=== PATIENT | female | born 1950 | race Caucasian/White ===

== ENCOUNTER 2016-12-19 14:47 | Emergency (ER) | payer MEDICARE, BC ==
[2016-12-19 15:00] VITALS: BP 140/51
--- NOTE | 2016-12-19 15:45 | EDM.PDOC ---
ED HPI GENERAL MEDICAL PROBLEM - General Chief Complaint: Back Pain or Injury Stated Complaint: BACK PAIN Time Seen by Provider: 12/19/16 15:19 Source of Information: Reports: Patient History Limitations: Reports: No Limitations - History of Present Illness INITIAL COMMENTS - FREE TEXT/NARRATIVE: 58-year-old female presents for evaluation and treatment of low back pain. Patient reports that she was moving furniture and painting today. She states that she was pulling on a piece of furniture when she felt pain in her low back. She states that it is painful to straighten her low back. States she feels most comfortable walking with hunched over. She denies any numbness or tingling into the legs. No saddle anesthesia. No urinary or stool incontinence. She states that she tried some Aleve and heating pad prior to arrival the pain. She did not hear any sounds popping or snapping when she developed the pain. No surgeries or past injury to the low back. Patient has a history of RA. Patient also complains of headaches. Reports she has had a headache since July. She said that she believes this is from a sinus infection. She reports associated tooth pain, pain behind her eyes and into her ureters. Since she was placed on a Z-Julio in September. Did not have any relief with the Z-Julio. 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 12/19/16 [History] Amoxicillin/Potassium Clav [Augmentin 500-125 Tablet] 1 each PO BID #20 tablet 12/19/16 [Rx] Orphenadrine [Norflex] 100 mg PO BID PRN #20 tab.er 12/19/16 [Rx] Sertraline [Zoloft] 100 mg PO DAILY 12/19/16 [History] Zolpidem Tartrate [Ambien] 10 mg PO BEDTIME 12/19/16 [History] traMADol [Ultram] 50 mg PO Q6H PRN #20 tablet 12/19/16 [Rx] Past Medical History Musculoskeletal History: Reports: RA Oncologic (Cancer) History: Reports: Breast Social & Family History - Tobacco Use Smoking Status *Q: Former Smoker Used Tobacco, but Quit: No ED ROS GENERAL - Review of Systems Review Of Systems: See Below Constitutional: Denies: Fever, Chills HEENT: Reports: Dental Pain, Ear Pain, Sinus Problem GI/Abdominal: Denies: Nausea, Vomiting Musculoskeletal: Reports: Back Pain Skin: Denies: Rash Neurological: Reports: Headache, Difficulty Walking. Denies: Numbness, Tingling ED EXAM,LOWER BACK PAIN/INJURY - Physical Exam Exam: See Below Exam Limited By: No Limitations General Appearance: Alert, WD/WN, No Apparent Distress Ears: Normal External Exam, Normal Canal, Hearing Grossly Normal Nose: Normal Inspection Throat/Mouth: Normal Inspection, Normal Lips, Normal Voice, No Airway Compromise Head: Sinus Tenderness Neck: Normal Inspection, Non-Tender, Full Range of Motion Respiratory/Chest: No Respiratory Distress, Lungs Clear, Normal Breath Sounds Cardiovascular: Normal Peripheral Pulses, Regular Rate, Rhythm, No Murmur Back Exam: Normal Inspection. No: CVA Tenderness (R), Decreased Range of Motion , Vertebral Tenderness Extremities: Normal Inspection Neurological: Alert, Normal Mood/Affect, Normal Dorsiflexion, Normal Plantar Flexion, Straight Leg Raise (L), Straight Leg Raise (R), Difficulty Walking ( walking hunched over), Other (no pain with adduction, abduction of the hips; minor pain with flexion ofthe hips). No: Saddle Anesthesia Psychiatric: Normal Affect, Normal Mood Skin Exam: Warm, Dry, Normal Color, Erythema (right lower back reportly from heating pad applied to the back prior to arrival; no rashes appreciated ) Course - Vital Signs Last Recorded V/S: Last Vital Signs Temp 36.7 C 12/19/16 14:57 Pulse 52 L 12/19/16 14:57 Resp 18 12/19/16 14:57 BP 140/51 L 12/19/16 14:57 Pulse Ox 98 12/19/16 14:57 - Re-Assessments/Exams Free Text/Narrative Re-Assessment/Exam: 12/19/16 15:40 Discussed imaging with the patient. I do not feel an x-ray will provide much additional information at this time. Will prescribe her some medication to help with the pain and discomfort. I am concerned she may have herniated a disc. It is also possible that she is just experiencing muscle strain and spasm. I will have her follow up with her primary care provider. We did discuss that she may require an MRI in the future to further evaluate if this does not improve. Patient agrees with this treatment plan. Will discharge home at this time. Departure - Departure Time of Disposition: 15:45 Disposition: Home, Self-Care 01 Condition: fair Clinical Impression: Back pain - Discharge Information Prescriptions: Amoxicillin/Potassium Clav [Augmentin 500-125 Tablet] 1 each PO BID #20 tablet Orphenadrine [Norflex] 100 mg PO BID PRN #20 tab.er PRN Reason: Muscle Spasm traMADol [Ultram] 50 mg PO Q6H PRN #20 tablet PRN Reason: Pain Instructions: Back Pain, Adult Referrals: Selvin Hwang MD [Primary Care Provider] - Forms: ED Department Discharge Additional Instructions: Take the Augmentin one tablet twice a day for 10 days. This is for the sinus infection. Take this with food. Recommend yogurt or probiotic as this medication can be hard on the stomach. Continue with [id number] Aleve twice a day. may take the Norflex one tab twice a day. This is for muscle relaxation. Do not drive or operate machinery until he noticed medication as norflex can make you drowsy. Tramadol one tab every 4-6 hours for pain not relieved by Aleve. Do not drive or operate machinery within 12 hours of taking tramadol. follow up with your primary care provider in 7-10 days for a recheck. You may require additional testing if your symptoms have not improved. Continue with ice or moist heat to the low back for additional pain relief. you may also try topical product for hot or BenGay. Please return to the ER should your symptoms change or worsen.
== END 2016-12-19 15:55 | disposition home or self-care (01) ==
LOC: MERGE 14:47 → JD.ED 14:47
DX: M54.5 Low back pain (principal); M06.9 Rheumatoid arthritis, unspecified; Z79.899 Other long term (current) drug therapy; Z87.891 Personal history of nicotine dependence
CPT/HCPCS: 99283

== ENCOUNTER 2020-12-09 09:07 | Inpatient (IN) | payer MEDICARE, BC ==
[~2020-12-09 09:07] MED LIST: Lactated Ringers 1,000 ML IV SCH; Lidocaine 1% 4 ML ONE; Lidocaine 1%/Sod Bicarbonate in NS 8.4% 1 ML Syringe IDERM PRN; Midazolam 1 MG/ML 2 ML SDV ONE; Propofol 200 MG/20 ML SDV ONE; Sodium Chloride 0.9% 10 ML Syringe FLUSH PRN; fentaNYL 100 MCG/2 ML SDV ONE
--- NOTE | 2020-12-09 09:19 | PCM.PREANE ---
Preanesthetic Assessment - Procedure Proposed Procedure: right breast mastectomy with sentinal node biopsy - Anesthesia/Transfusion/Family Hx Anesthesia History: Prior Anesthesia Without Reaction Family History of Anesthesia Reaction: No Transfusion History: No Prior Transfusion(s) - Review of Systems General: No Symptoms Pulmonary: No Symptoms Cardiovascular: No Symptoms Gastrointestinal: No Symptoms Neurological: No Symptoms Other: Reports: Depression - Physical Assessment NPO Status Date: 12/08/20 NPO Status Time: 19:00 Vital Signs: 98.0 18 95% 70 111/68 Height: 5 ft 6 in Weight: 60.1 kg ASA Class: 2 Mental Status: Alert & Oriented x3 Airway Class: Mallampati = 1 Dentition: Reports: Normal Dentition Thyro-Mental Finger Breadths: 3 Mouth Opening Finger Breadths: 3 ROM/Head Extension: Full Lungs: Clear to Auscultation, Normal Respiratory Effort Cardiovascular: Regular Rate, Regular Rhythm - Allergies Allergies/Adverse Reactions: Allergies Allergy/AdvReac Type Severity Reaction Status Date / Time No Known Allergies Allergy Verified 12/08/20 10:45 - Blood Blood Available: No - Acknowledgements Anesthesia Type Planned: General Anesthesia Pt an Appropriate Candidate for the Planned Anesthesia: Yes Alternatives and Risks of Anesthesia Discussed w Pt/Guardian: Yes Pt/Guardian Understands and Agrees with Anesthesia Plan: Yes PreAnesthesia Questionnaire HEENT History: Reports: Cataract Cardiovascular History: Reports: Angina, High Cholesterol, Other (See Below) Other Cardiovascular History: coronary artery spasm, heart cath Respiratory History: Reports: None Gastrointestinal History: Reports: Colon Polyp, Diverticulosis Genitourinary History: Reports: UTI, Recurrent SANITARY LANDFILL SUPERVISOR History: Reports: None Musculoskeletal History: Reports: RA, Other (See Below) Other Musculoskeletal History: polyarthralgia, left shoulder impingement Neurological History: Reports: Headaches, Chronic (gone) Psychiatric History: Reports: Depression Endocrine/Metabolic History: Reports: None Hematologic History: Reports: None Immunologic History: Reports: None Oncologic (Cancer) History: Reports: Breast Dermatologic History: Reports: None - Infectious Disease History Infectious Disease History: Reports: None - Past Surgical History Head Surgeries/Procedures: Reports: None HEENT Surgical History: Reports: Cataract Surgery, Oral Surgery Cardiovascular Surgical History: Reports: None Respiratory Surgical History: Reports: None GI Surgical History: Reports: Colonoscopy Female Surgical History: Reports: None Male Surgical History: Reports: None, Other (See Below) (lumpectomy 2002) Endocrine Surgical History: Reports: None Neurological Surgical History: Reports: None Musculoskeletal Surgical History: Reports: None Oncologic Surgical History: Reports: None Dermatological Surgical History: Reports: None - SUBSTANCE USE Tobacco Use Status *Q: Former Tobacco User (quit 1981) Tobacco Use Within Last Twelve Months: No Second Hand Smoke Exposure: No Days Per Week of Alcohol Use: 0 Recreational Drug Use History: No - HOME MEDS Home Medications: Home Meds Aspirin 81 mg PO DAILY 12/08/20 [History] Calcium Carb/Vitamin D3/Vit K1 [Calcium + D Soft Chewable Tab] 1 tab PO DAILY 12/08/20 [History] Cholecalciferol (Vitamin D3) [Vitamin D3] 1,000 unit PO DAILY 12/08/20 [History] Citalopram Hydrobromide [Celexa] 20 mg PO DAILY 12/08/20 [History] Denosumab [Prolia] 60 mg SQ ASDIRECTED 12/08/20 [History] Isosorbide Mononitrate [Imdur] 30 mg PO BID 12/08/20 [History] Naproxen Sodium [Aleve] 220 mg PO BID 12/08/20 [History] Nitroglycerin [Nitrostat] 0.4 mg SL ASDIRECTED PRN 12/08/20 [History] Ranolazine [Ranexa] 500 mg PO BID 12/08/20 [History] Ubidecarenone [Coq-10] 100 mg PO DAILY 12/08/20 [History] Zolpidem Tartrate [Ambien Cr] 6.25 mg PO BEDTIME PRN 12/08/20 [History] amLODIPine [Norvasc] 5 mg PO DAILY 12/08/20 [History] atorvaSTATin Calcium [Lipitor] 20 mg PO BEDTIME 12/08/20 [History] - CURRENT (IN HOUSE) MEDS Current Meds: Current Medications Lactated Ringer's (Ringers, Lactated) 1,000 mls @ 125 mls/hr IV ASDIRECTED CHIKI Stop: 12/09/20 23:00 Lidocaine/Sodium Bicarbonate (Lidocaine 1%/Sod Bicarbonate In Ns 8.4% 1 Ml Syringe) 0.25 ml IDERM ONETIME PRN PRN Reason: Prior to IV Start Stop: 12/09/20 18:00 Sodium Chloride (Sodium Chloride 0.9% 10 Ml Syringe) 10 ml FLUSH ASDIRECTED PRN PRN Reason: Keep Vein Open Stop: 12/09/20 18:00 Discontinued Medications Fentanyl (Fentanyl 100 Mcg/2 Ml Sdv) Confirm Administered Dose 100 mcg .ROUTE .STK-MED ONE Stop: 12/09/20 08:38 Lidocaine HCl (Xylocaine-Mpf 1%) Confirm Administered Dose 4 mls @ as directed .ROUTE .STK-MED ONE Stop: 12/09/20 08:38 Midazolam HCl (Midazolam 1 Mg/Ml 2 Ml Sdv) Confirm Administered Dose 2 mg .ROUTE .STK-MED ONE Stop: 12/09/20 08:37 Propofol (Propofol 200 Mg/20 Ml Sdv) Confirm Administered Dose 200 mg .ROUTE .STK-MED ONE Stop: 12/09/20 08:38 Propofol (Propofol 200 Mg/20 Ml Sdv) Confirm Administered Dose 200 mg .ROUTE .STK-MED ONE Stop: 12/09/20 08:38
[2020-12-09] MEDS ORDERED: ceFAZolin 1 GM Vial ONE (09:26)
[2020-12-09] MEDS ORDERED: Lidocaine 1% with EPINEPHrine 1:100,000 10 ML MDV ONE (09:39)
[2020-12-09] MEDS ORDERED: Bupivacaine 0.5%/EPINEPHrine 1:200,000 50 ML MDV ONE (09:40)
[2020-12-09] MEDS ORDERED: Methylene Blue 50 MG/10 ML Ampule ONE (09:41)
[2020-12-09] MEDS ORDERED: Dextrose 5% in Water 100 ML ONE (09:44)
[2020-12-09] MEDS ORDERED: fentaNYL 100 MCG/2 ML SDV ONE (10:08)
[2020-12-09] MEDS ORDERED: Lactated Ringers 1,000 ML ONE ×2 (11:11→13:19)
[2020-12-09] MEDS ORDERED: Midazolam 1 MG/ML 2 ML SDV ONE (11:34)
[2020-12-09] MEDS ORDERED: ePHEDrine 50 MG/ML SDV ONE ×2 (12:51→12:52)
[2020-12-09] MEDS ORDERED: Ondansetron 4 MG/2 ML SDV ONE (13:02)
[2020-12-09] MEDS ORDERED: Dexamethasone 4 MG/ML 5 ML MDV ONE (13:02)
--- NOTE | 2020-12-09 13:12 | NM ---
Lena lymph node injection 1.02 mCi of technetium 99m filtered sulfur colloid was injected by ordering physician in surgery. No filming was obtained.
--- NOTE | 2020-12-09 13:43 | PCM.OPNOTE ---
- General Post-Op/Procedure Note Date of Surgery/Procedure: 12/09/20 Operative Procedure(s): right mastectomy with sentinel lymph node biopsy Findings: Poor uptake of radiotracer and Methylene blue dye into the lymphatics Pre Op Diagnosis: right breast cancer Post-Op Diagnosis: same Anesthesia Technique: General LMA, Local Primary Surgeon: Nicole Lowry Anesthesia Provider: Shanita Lawrence Pathology: 1. Right breast- short stitch superior and long stitch lateral margins 2. Left Axillary tissue 3. Left Axillary node 4. Left axillary skin 5. Medial margin skin Fluid Replacement, Intraop: 2,000 EBL in mLs: 50 Surgical Drain/Tube Type: Amauri Drain Drain/Tube Comments:: to bulb suction Complications: none apparent Condition: Good
--- NOTE | 2020-12-09 13:47 | PCM.PRNOTE ---
- Free Text/Narrative Note: Operative Report Date of surgery: December 09, 2020 Preoperative diagnosis: Right breast cancer Postoperative diagnosis:same Procedure: right mastectomy with sentinel lymph node biopsy Surgeon: Dr. Nicole Lowry Garbage Collection Supervisor: n/a Anesthesia: General LMA with local Dielectric Tester: Shanita Lawrence CRNA and Filipe Prater CRNA Estimated blood loss: 50 mL IV fluids: 2000 mL Urine output: 0 mL Drains and lines: 10F amauri drain in right chest mastectomy cavity Findings: Poor uptake of radiotracer and Methylene blue dye into the lymphatics Pathology: 1. Right breast- short stitch superior and long stitch lateral margins 2. Left Axillary tissue 3. Left Axillary node 4. Left axillary skin 5. Medial margin skin Indication for the procedure: The patient is a 70-year-old lady who presented with findings of a second breast cancer after a remote history of right breast cancer that was treated with a lumpectomy and radiation. She had previously undergone mammogram a. She was consented for a mastectomy after discussion of risks of possible bleeding, infection, hematoma, seroma, and wound comp lications. We also discussed a sentinel lymph node biopsy. We discussed risks of possible upper extremity edema. Her written consent was obtained. Description of the procedure: The patient was brought to the operating room and placed in the supine position on the operating table. The right breast had been marked in the preoperative area. She had successful induction of general anesthesia, and an LMA was placed without difficulty. Antibiotics were given according to SQIP guidelines, Ancef 2g IV. A surgical timeout was performed. The lymphoscintigraphy injection was then made in 4 quadrants around the areolar complex, total of 1 mL. The patient was prepped and draped in standard surgical fashion. Methylene blue was then injected in 4 quadrants around the areolar complex, a total of 4 mL was used. The breast was the massaged for 5 minutes to facilitate uptake of the dye and lymphoscintigraphy tracer. An incision was marked in an elliptical fashion a round the nipple-areolar complex. Once this was drawn on the skin with a sterile skin marker, an incision was made with a #10 blade scalpel, then extended through the remainder of the dermis using the Bovie device, maintaining hemostasis as we progressed. The skin flaps were then raised superiorly, medially, inferiorly and laterally, taking care to maintain adequate vascular supply. The dissection taken down to the chest wall in the superior, medial and inferior positions. The breast tissue was then dissected off the chest wall to the investing fascia of the pectoralis major muscle. The breast was carefully taken off the axilla. The specimen was then oriented with a short suture placed superiorly and a long suture placed laterally. The Gamma counter was used to evaluate the tail of the breast as there was axillary tissue attached. We had persistent counts up to the 30's, but as the areolar tissue was dissected free from the breast specimen, no significant counts were identified, indicating very poor uptake of the lymphoscintigraphy tracer. In addition, there was no methylene blue noted in the lymphatic system. The axillary tissue was then passed off for pathology. The Gamma counter was used to evaluate the axill a, and there was no significant uptake seen. There was a prominent lymph node noted superficially in the surgical field, and this was removed for testing. The operative field was then inspected for adequacy of hemostasis. Small points of bleeding were easily controlled with Bovie. The wound was irrigated using sterile water. The skin was then evaluated for closure. Two additional ellipses of skin were removed on the superior lateral and inferior lateral portions of the wound. An additional medial margin of skin was removed for better cosmesis. A 10F Amauri drain was then inserted into the mastectomy cavity and brought out through the lateral chest skin and secured to the skin externally using a 2-0 nylon suture. It was then connected to bulb suction. The skin was closed in two layers. The deep dermis was approximated using interrupted deep dermal sutures of 3-0 Vicryl in a Y-shaped incision and the skin closed with running subcuticular suture of 4-0 Monocryl. Dermabond surgical glue was applied to the top layer of skin. Gauze is placed around the drain as a drain dressing, and additional gauze and a surgical bra was placed. The patient tolerated the procedures well. Sponge, needle and instrument counts were all correct at the end of the procedure. The patient was then brought back to the PACU at the end of the procedure, extubated, awake and in good condition. No immediate complications were noted. Nicole Lowry MD General surgery
--- NOTE | 2020-12-09 13:52 | PCM.POSTAN ---
POST ANESTHESIA ASSESSMENT - MENTAL STATUS Mental Status: Alert, Oriented - VITAL SIGNS Vital Signs: Last Vital Signs Temp 36.3 C 12/09/20 13:41 Pulse 70 12/09/20 09:05 Resp 15 12/09/20 13:41 BP 115/59 L 12/09/20 13:41 Pulse Ox 95 12/09/20 13:41 - RESPIRATORY Respiratory Status: Respiratory Rate WNL, Airway Patent, O2 Saturation Stable, Supplemental Oxygen - CARDIOVASCULAR CV Status: Pulse Rate WNL, Blood Pressure Stable - GASTROINTESTINAL GI Status: No Symptoms - PAIN Pain Score: 0 - POST OP HYDRATION Hydration Status: Adequate & Stable
[2020-12-09] MEDS ORDERED: traMADol 50 MG Tab PO PRN (13:53)
[2020-12-09] MEDS ORDERED: Nitroglycerin 0.4 MG Tab.SL SL PRN (14:13)
[2020-12-09] MEDS ORDERED: Non-Formulary Medication 1 Each (Denosumab [Prolia] 60 MG/ML Syringe) SQ SCH (14:15)
[2020-12-09] MEDS ORDERED: Zolpidem 5 MG Tab PO PRN (15:16)
[2020-12-09] MEDS: Acetaminophen 325 MG Tab PO SCH ×2 (15:37→20:09)
[2020-12-09] MEDS: Docusate Sodium 100 MG Cap PO SCH (20:09)
[2020-12-09] MEDS: Isosorbide Mononitrate 30 MG Tab.ER PO SCH (20:10)
[2020-12-09] MEDS ORDERED: atorvaSTATin 20 MG Tab PO SCH (21:00)
[2020-12-10] MEDS: Acetaminophen 325 MG Tab PO SCH ×2 (03:04→09:52)
--- NOTE | 2020-12-10 07:34 | PCM.SURGPN ---
- General Info Date of Service: 12/10/20 POD#: 1 Post-Op Diagnosis: right breast cancer, s/p right mastectomy and sentinel lymph node biopsy Functional Status: Reports: Pain Controlled, Tolerating Diet - Patient Data Vitals - Most Recent: Last Vital Signs Temp 36.6 C 12/10/20 03:06 Pulse 58 L 12/10/20 03:06 Resp 18 12/10/20 03:06 BP 115/73 12/10/20 03:06 Pulse Ox 92 L 12/10/20 03:06 Weight - Most Recent: 61.462 kg I&O - Last 24 Hours: Intake & Output 12/09/20 12/10/20 12/10/20 22:59 06:59 14:59 Intake Total 100 250 Output Total 55 Balance 100 195 Lab Results Last 24 Hrs: Laboratory Results - last 24 hr 12/09/20 12/09/20 Range/Units 10:03 10:03 WBC 4.01 (3.98-10.04) K/mm3 RBC 3.60 L (3.98-5.22) M/mm3 Hgb 11.2 (11.2-15.7) gm/dl Hct 33.6 L (34.1-44.9) % MCV 93.3 (79.4-94.8) fl MCH 31.1 (25.6-32.2) pg MCHC 33.3 (32.2-35.5) g/dl RDW Std Deviation 41.9 (36.4-46.3) fL Plt Count 245 (182-369) K/mm3 MPV 9.3 L (9.4-12.3) fl Neut % (Auto) 58.2 (34.0-71.1) % Lymph % (Auto) 30.4 (19.3-51.7) % [place] % (Auto) 8.7 (4.7-12.5) % Eos % (Auto) 2.2 (0.7-5.8) Baso % (Auto) 0.5 (0.1-1.2) % Neut # (Auto) 2.33 (1.56-6.13) K/mm3 Lymph # (Auto) 1.22 (1.18-3.74) K/mm3 [place] # (Auto) 0.35 (0.24-0.36) K/mm3 Eos # (Auto) 0.09 (0.04-0.36) K/mm3 Baso # (Auto) 0.02 (0.01-0.08) K/mm3 Sodium 142 (136-145) mEq/L Potassium 4.0 (3.5-5.1) mEq/L Chloride 105 (98-107) mEq/L Carbon Dioxide 28 (21-32) mEq/L Anion Gap 13.0 (5-15) BUN 29 H (7-18) mg/dL Creatinine 0.9 (0.55-1.02) mg/dL Est Cr Clr Drug Dosing 52.89 mL/min Estimated GFR (MDRD) > 60 (>60) mL/min BUN/Creatinine Ratio 32.2 H (14-18) Glucose 88 (70-99) mg/dL Calcium 8.7 (8.5-10.1) mg/dL Med Orders - Current: Current Medications Acetaminophen (Acetaminophen 325 Mg Tab) 650 mg PO Q6H [facility] Last Admin: 12/10/20 03:04 Dose: 650 mg Documented by: Amlodipine Besylate (Amlodipine 5 Mg Tab) 5 mg PO DAILY [facility] Aspirin (Aspirin 81 Mg Tab.Chew) 81 mg PO DAILY [facility] Atorvastatin Calcium (Atorvastatin 20 Mg Tab) 20 mg PO BEDTIME [facility] Last Admin: 12/09/20 20:10 Dose: 20 mg Documented by: Calcium Carbonate (Calcium Carbonate/Vitamin D3 600 Mg-200 Units Tab) 1 tab PO DAILY [facility] Cholecalciferol (Cholecalciferol (Vitamin D3) 25 Mcg Tab) 25 mcg PO DAILY [facility] Citalopram Hydrobromide (Citalopram 20 Mg Tab) 20 mg PO DAILY [facility] Docusate Sodium (Docusate Sodium 100 Mg Cap) 100 mg PO BID [facility] Last Admin: 12/09/20 20:09 Dose: 100 mg Documented by: Isosorbide Mononitrate (Isosorbide Mononitrate 30 Mg Tab.Er) 30 mg PO BID [facility] Last Admin: 12/09/20 20:10 Dose: 30 mg Documented by: Nitroglycerin (Nitroglycerin 0.4 Mg Tab.Sl) 0.4 mg SL ASDIRECTED PRN PRN Reason: Chest Pain Ranolazine (Ranolazine 500 Mg Tab.Er) 500 mg PO BID [facility] Last Admin: 12/09/20 20:10 Dose: 500 mg Documented by: Tramadol HCl (Tramadol 50 Mg Tab) 50 mg PO Q4H PRN PRN Reason: Pain (moderate 4-6) Zolpidem Tartrate (Zolpidem 5 Mg Tab) 5 mg PO BEDTIME PRN PRN Reason: Insomnia Last Admin: 12/09/20 20:21 Dose: 5 mg Documented by: Discontinued Medications Bupivacaine HCl/Epinephrine Bitart (Bupivacaine 0.5%/Epinephrine 1:200,000 50 Ml Mdv) Confirm Administered Dose 50 ml .ROUTE .[facility] ONE Stop: 12/09/20 09:41 Last Admin: 12/09/20 11:16 Dose: 15 ml Documented by: Cefazolin Sodium (Cefazolin 1 Gm Vial) Confirm Administered Dose 2 gm .ROUTE .[facility] ONE Stop: 12/09/20 09:27 Dexamethasone (Dexamethasone 4 Mg/Ml 5 Ml Mdv) Confirm Administered Dose 20 mg .ROUTE .[facility] Stop: 12/09/20 13:03 Ephedrine Sulfate (Ephedrine 50 Mg/Ml Sdv) Confirm Administered Dose 50 mg .ROUTE .[facility] ONE Stop: 12/09/20 12:52 Ephedrine Sulfate (Ephedrine 50 Mg/Ml Sdv) Confirm Administered Dose 50 mg .ROUTE .[facility] ONE Stop: 12/09/20 12:53 Fentanyl (Fentanyl 100 Mcg/2 Ml Sdv) Confirm Administered Dose 100 mcg .ROUTE .[facility] ONE Stop: 12/09/20 08:38 Fentanyl (Fentanyl 100 Mcg/2 Ml Sdv) Confirm Administered Dose 100 mcg .ROUTE .[facility] ONE Stop: 12/09/20 10:09 Lactated Ringer's (Ringers, Lactated) 1,000 mls @ 125 mls/hr IV ASDIRECTED [facility] Stop: 12/09/20 23:00 Last Admin: 12/09/20 09:20 Dose: 125 mls/hr Documented by: Lidocaine HCl (Xylocaine-Mpf 1%) Confirm Administered Dose 4 mls @ as directed .ROUTE .[facility] ONE Stop: 12/09/20 08:38 Dextrose/Water (Dextrose 5% In Water) Confirm Administered Dose 100 mls @ as directed .ROUTE .[facility] ONE Stop: 12/09/20 09:45 Lactated Ringer's (Ringers, Lactated) Confirm Administered Dose 1,000 mls @ as directed .ROUTE .[facility] ONE Stop: 12/09/20 11:12 Lactated Ringer's (Ringers, Lactated) Confirm Administered Dose 1,000 mls @ as directed .ROUTE .[facility] ONE Stop: 12/09/20 13:20 Lidocaine/Epinephrine (Lidocaine 1% With Epinephrine 1:100,000 10 Ml Mdv) Confirm Administered Dose 50 ml .ROUTE .[facility] ONE Stop: 12/09/20 09:40 Last Admin: 12/09/20 11:16 Dose: 15 ml Documented by: Lidocaine/Sodium Bicarbonate (Lidocaine 1%/Sod Bicarbonate In Ns 8.4% 1 Ml Syringe) 0.25 ml IDERM ONETIME PRN PRN Reason: Prior to IV Start Stop: 12/09/20 18:00 Last Admin: 12/09/20 09:20 Dose: 0.25 ml Documented by: Methylene Blue (Methylene Blue 50 Mg/10 Ml Ampule) Confirm Administered Dose 50 mg .ROUTE .[facility] ONE Stop: 12/09/20 09:42 Last Admin: 12/09/20 11:06 Dose: 5 mg Documented by: Midazolam HCl (Midazolam 1 Mg/Ml 2 Ml Sdv) Confirm Administered Dose 2 mg .ROUTE .[facility] ONE Stop: 12/09/20 08:37 Midazolam HCl (Midazolam 1 Mg/Ml 2 Ml Sdv) Confirm Administered Dose 2 mg .ROUTE .[facility] ONE Stop: 12/09/20 11:35 Non-Formulary Medication (Denosumab [Prolia]) 60 mg SQ ASDIRECTED [facility] Non-Formulary Medication (Ubidecarenone) 100 mg PO DAILY [facility] Ondansetron HCl (Ondansetron 4 Mg/2 Ml Sdv) Confirm Administered Dose 4 mg .ROUTE .[facility] ONE Stop: 12/09/20 13:03 Propofol (Propofol 200 Mg/20 Ml Sdv) Confirm Administered Dose 200 mg .ROUTE .[facility] ONE Stop: 12/09/20 08:38 Propofol (Propofol 200 Mg/20 Ml Sdv) Confirm Administered Dose 200 mg .ROUTE .[facility] ONE Stop: 12/09/20 08:38 Sodium Chloride (Sodium Chloride 0.9% 10 Ml Syringe) 10 ml FLUSH ASDIRECTED PRN PRN Reason: Keep Vein Open Stop: 12/09/20 18:00 - Exam Wound/Incisions: Healing Well, Dressing Dry and Intact, Drainage (SS drainage in HIRAM bulb), Erythema (very mild) General: Alert, Oriented HEENT: Pupils Equal, EOMI Lungs: Normal Respiratory Effort Sepsis Event Note - Evaluation Sepsis Screening Result: No Definite Risk - Focused Exam Vital Signs: Vital Signs Temp Pulse Resp BP Pulse Ox 12/10/20 03:06 36.6 C 58 L 18 115/73 92 L 12/09/20 22:52 36.8 C 64 16 107/51 L 91 L 12/09/20 20:10 106/64 12/09/20 19:56 36.7 C 65 16 106/64 93 L - Problem List & Annotations (1) S/P right mastectomy SNOMED Code(s): 693730440, 573924025 Code(s): Z90.11 - ACQUIRED ABSENCE OF RIGHT BREAST AND NIPPLE Status: Acute Current Visit: Yes (2) Breast cancer, right SNOMED Code(s): 061300428 Code(s): C50.911 - MALIGNANT NEOPLASM OF UNSP SITE OF RIGHT FEMALE BREAST Status: Acute Current Visit: Yes - Problem List Review Problem List Initiated/Reviewed/Updated: Yes - My Orders Last 24 Hours: Active Orders 24 hr Category Date Time Status Patient Status [ADT] Routine ADT 12/09/20 13:45 Active Antiembolic Devices [RC] .Routine Care 12/09/20 13:50 Active Communication Order [RC] PER UNIT ROUTINE Care 12/09/20 13:53 Active Communication Order [RC] ROUTINE Care 12/09/20 13:53 Active Drain Management [RC] ASDIRECTED Care 12/09/20 13:53 Active Intake and Output [RC] 04,16 Care 12/09/20 13:46 Active Notify Provider Vital Signs [RC] PRN Care 12/09/20 13:46 Active Oxygen Therapy [RC] PRN Care 12/09/20 13:45 Active RT Incentive Spirometry [RC] Q1HWA Care 12/09/20 13:45 Active Up ad Marcelina [RC] ASDIRECTED Care 12/09/20 13:45 Active VTE/DVT Education [RC] PER UNIT ROUTINE Care 12/09/20 13:50 Active Vital Signs [RC] Q4HR Care 12/09/20 13:45 Active OT Evaluation and Treatment [CONS] Routine Cons 12/09/20 13:53 Active Regular Diet [DIET] Diet 12/09/20 Dinner Active Acetaminophen [TylenoL] Med 12/09/20 15:00 Active 650 mg PO Q6H Aspirin Med 12/10/20 09:00 Active 81 mg PO DAILY Calcium Carbonate/Vitamin D3 [Calcium Carbonate/Vitamin Med 12/10/20 09:00 Active D 600 MG-200 Unit] 1 tab PO DAILY Cholecalciferol (Vitamin D3) [Vitamin D3] Med 12/10/20 09:00 Active 25 mcg PO DAILY Citalopram [Celexa] Med 12/10/20 09:00 Active 20 mg PO DAILY Docusate Sodium [Colace] Med 12/09/20 21:00 Active 100 mg PO BID Isosorbide Mononitrate [Imdur] Med 12/09/20 21:00 Active 30 mg PO BID Nitroglycerin [Nitrostat] Med 12/09/20 14:13 Active 0.4 mg SL ASDIRECTED PRN Ranolazine [Ranexa] Med 12/09/20 21:00 Active 500 mg PO BID Zolpidem [Ambien] Med 12/09/20 15:16 Active 5 mg PO BEDTIME PRN amLODIPine [Norvasc] Med 12/10/20 09:00 Active 5 mg PO DAILY atorvaSTATin [Lipitor] Med 12/09/20 21:00 Active 20 mg PO BEDTIME traMADol [Ultram] Med 12/09/20 13:53 Active 50 mg PO Q4H PRN DVT/VTE Prophylaxis Reflex [OM.PC] Routine Oth 12/09/20 13:45 Ordered Sequential Compression Device [OM.PC] Per Unit Routine Oth 12/09/20 13:51 Ordered Resuscitation Status Routine Resus Stat 12/09/20 13:45 Ordered Medication Orders Acetaminophen (Acetaminophen 325 Mg Tab) 650 mg PO Q6H [facility] Last Admin: 12/10/20 03:04 Dose: 650 mg Documented by: Admin: 12/09/20 20:09 Dose: 650 mg Documented by: Admin: 12/09/20 15:37 Dose: 650 mg Documented by: DAVION Amlodipine Besylate (Amlodipine 5 Mg Tab) 5 mg PO DAILY [facility] Aspirin (Aspirin 81 Mg Tab.Chew) 81 mg PO DAILY [facility] Atorvastatin Calcium (Atorvastatin 20 Mg Tab) 20 mg PO BEDTIME [facility] Last Admin: 12/09/20 20:10 Dose: 20 mg Documented by: ANJELICA Calcium Carbonate (Calcium Carbonate/Vitamin D3 600 Mg-200 Units Tab) 1 tab PO DAILY [facility] Cholecalciferol (Cholecalciferol (Vitamin D3) 25 Mcg Tab) 25 mcg PO DAILY [facility] Citalopram Hydrobromide (Citalopram 20 Mg Tab) 20 mg PO DAILY [facility] Docusate Sodium (Docusate Sodium 100 Mg Cap) 100 mg PO BID [facility] Last Admin: 12/09/20 20:09 Dose: 100 mg Documented by: ANJELICA Isosorbide Mononitrate (Isosorbide Mononitrate 30 Mg Tab.Er) 30 mg PO BID [facility] Last Admin: 12/09/20 20:10 Dose: 30 mg Documented by: ANJELICA Nitroglycerin (Nitroglycerin 0.4 Mg Tab.Sl) 0.4 mg SL ASDIRECTED PRN PRN Reason: Chest Pain Ranolazine (Ranolazine 500 Mg Tab.Er) 500 mg PO BID [facility] Last Admin: 12/09/20 20:10 Dose: 500 mg Documented by: ANJELICA Tramadol HCl (Tramadol 50 Mg Tab) 50 mg PO Q4H PRN PRN Reason: Pain (moderate 4-6) Zolpidem Tartrate (Zolpidem 5 Mg Tab) 5 mg PO BEDTIME PRN PRN Reason: Insomnia Last Admin: 12/09/20 20:21 Dose: 5 mg Documented by: ANJELICA - Assessment Assessment (Free Text/Narrative):: 70 y/o lady POD 1 s/p right mastectomy. Doing well - Plan Plan (Free Text/Narrative):: - continue tylenol for pain - regular diet - drain teaching - OT for post-mastectomy exercises - ambulate ad marcelina Discharge home today after OT and drain teaching. Plan for follow up in 1 week for drain removal. Nicole Lowry MD General surgery
[2020-12-10 07:39] VITALS: PULSE 55
--- NOTE | 2020-12-10 07:41 | PCM.DCSUM1 ---
Discharge Summary - Hospital Course Free Text/Narrative:: The patient is a 70 y/o lady with breast cancer that was admitted after a right mastectomy with sentinel lymph node biopsy. She did well on POD1 without bleeding and was tolerating a diet. She had minimal pain. She was discharged home with close clinic follow up. Diagnosis: Stroke: No Modified [place] Scale: No Signif.Disability Despite Sympt.Able to Carry Out Usual Act./Duties Modified [place] Scale Score: 1 - Discharge Data Discharge Date: 12/10/20 Discharge Disposition: Home, Self-Care 01 Condition: Good - Referral to Home Health Primary Care Physician: Selvin Hwang MD - Discharge Diagnosis/Problem(s) (1) S/P right mastectomy SNOMED Code(s): 943615065, 595978440 ICD Code: Z90.11 - ACQUIRED ABSENCE OF RIGHT BREAST AND NIPPLE Status: Acute (2) Breast cancer, right SNOMED Code(s): 080123330 ICD Code: C50.911 - MALIGNANT NEOPLASM OF UNSP SITE OF RIGHT FEMALE BREAST Status: Acute - Patient Summary/Data Operative Procedure(s) Performed: right mastectomy with sentinel lymph node biopsy Consults: Consultations 12/09/20 13:53 OT Evaluation and Treatment [CONS] Routine - Patient Instructions Diet: Usual Diet as Tolerated Activity: As Tolerated, No Lifting Over 20 Pounds (for 2 weeks) Showering/Bathing: No Showering (until drain is removed- may take a sponge bath), No Tub Bathing/Swimming (for 14 days ) Wound/Incision Care: Keep Operative Site/Wound Site Clean and Dry Notify Provider of: Fever, Increased Pain, Swelling and Redness, Drainage - Discharge Plan *PRESCRIPTION DRUG MONITORING PROGRAM REVIEWED*: Not Applicable *COPY OF PRESCRIPTION DRUG MONITORING REPORT IN PATIENT VIMAL: Not Applicable Prescriptions/Med Rec: Docusate Sodium [Colace] 100 mg PO BID 20 Days #40 cap Acetaminophen [Tylenol] 650 mg PO Q6H 14 Days #120 tablet traMADol [Ultram] 50 mg PO Q4H PRN 14 Days #15 tablet PRN Reason: Pain (Moderate 4-6) Home Medications: Home Meds Aspirin 81 mg PO DAILY 12/08/20 [History] Calcium Carb/Vitamin D3/Vit K1 [Calcium + D Soft Chewable Tab] 1 tab PO DAILY 12/08/20 [History] Cholecalciferol (Vitamin D3) [Vitamin D3] 1,000 unit PO DAILY 12/08/20 [History] Citalopram Hydrobromide [Celexa] 20 mg PO DAILY 12/08/20 [History] Denosumab [Prolia] 60 mg SQ ASDIRECTED 12/08/20 [History] Isosorbide Mononitrate [Imdur] 30 mg PO BID 12/08/20 [History] Naproxen Sodium [Aleve] 220 mg PO BID 12/08/20 [History] Nitroglycerin [Nitrostat] 0.4 mg SL ASDIRECTED PRN 12/08/20 [History] Ranolazine [Ranexa] 500 mg PO BID 12/08/20 [History] Ubidecarenone [Coq-10] 100 mg PO DAILY 12/08/20 [History] Zolpidem Tartrate [Ambien Cr] 6.25 mg PO BEDTIME PRN 12/08/20 [History] amLODIPine [Norvasc] 5 mg PO DAILY 12/08/20 [History] atorvaSTATin Calcium [Lipitor] 20 mg PO BEDTIME 12/08/20 [History] Acetaminophen [Tylenol] 650 mg PO Q6H 14 Days #120 tablet 12/10/20 [Rx] Docusate Sodium [Colace] 100 mg PO BID 20 Days #40 cap 12/10/20 [Rx] traMADol [Ultram] 50 mg PO Q4H PRN 14 Days #15 tablet 12/10/20 [Rx] Patient Handouts: Form - Surgical Drain Record, Exercises Following Breast Surgery, Total or Modified Radical Mastectomy, Care After, Surgical Drain Home Care Referrals: Nicole Lowry MD [Physician] - 12/15/20 1:00 pm (please come 15 minutes prior to the appointment to register.) Selvin Hwang MD [Primary Care Provider] - (follow up as needed.) - Discharge Summary/Plan Comment DC Time >30 min.: No - Patient Data Vitals - Most Recent: Last Vital Signs Temp 36.7 C 12/10/20 07:35 Pulse 55 L 12/10/20 07:35 Resp 16 12/10/20 07:35 BP 107/51 L 12/10/20 07:35 Pulse Ox 98 12/10/20 07:35 Weight - Most Recent: 61.462 kg I&O - Last 24 hours: Intake & Output 12/09/20 12/10/20 12/10/20 22:59 06:59 14:59 Intake Total 100 250 Output Total 55 Balance 100 195 Lab Results - Last 24 hrs: Laboratory Results - last 24 hr 12/09/20 12/09/20 Range/Units 10:03 10:03 WBC 4.01 (3.98-10.04) K/mm3 RBC 3.60 L (3.98-5.22) M/mm3 Hgb 11.2 (11.2-15.7) gm/dl Hct 33.6 L (34.1-44.9) % MCV 93.3 (79.4-94.8) fl MCH 31.1 (25.6-32.2) pg MCHC 33.3 (32.2-35.5) g/dl RDW Std Deviation 41.9 (36.4-46.3) fL Plt Count 245 (182-369) K/mm3 MPV 9.3 L (9.4-12.3) fl Neut % (Auto) 58.2 (34.0-71.1) % Lymph % (Auto) 30.4 (19.3-51.7) % [place] % (Auto) 8.7 (4.7-12.5) % Eos % (Auto) 2.2 (0.7-5.8) Baso % (Auto) 0.5 (0.1-1.2) % Neut # (Auto) 2.33 (1.56-6.13) K/mm3 Lymph # (Auto) 1.22 (1.18-3.74) K/mm3 [place] # (Auto) 0.35 (0.24-0.36) K/mm3 Eos # (Auto) 0.09 (0.04-0.36) K/mm3 Baso # (Auto) 0.02 (0.01-0.08) K/mm3 Sodium 142 (136-145) mEq/L Potassium 4.0 (3.5-5.1) mEq/L Chloride 105 (98-107) mEq/L Carbon Dioxide 28 (21-32) mEq/L Anion Gap 13.0 (5-15) BUN 29 H (7-18) mg/dL Creatinine 0.9 (0.55-1.02) mg/dL Est Cr Clr Drug Dosing 52.89 mL/min Estimated GFR (MDRD) > 60 (>60) mL/min BUN/Creatinine Ratio 32.2 H (14-18) Glucose 88 (70-99) mg/dL Calcium 8.7 (8.5-10.1) mg/dL Med Orders - Current: Current Medications Acetaminophen (Acetaminophen 325 Mg Tab) 650 mg PO Q6H [facility] Last Admin: 12/10/20 03:04 Dose: 650 mg Documented by: Amlodipine Besylate (Amlodipine 5 Mg Tab) 5 mg PO DAILY [facility] Aspirin (Aspirin 81 Mg Tab.Chew) 81 mg PO DAILY [facility] Atorvastatin Calcium (Atorvastatin 20 Mg Tab) 20 mg PO BEDTIME [facility] Last Admin: 12/09/20 20:10 Dose: 20 mg Documented by: Calcium Carbonate (Calcium Carbonate/Vitamin D3 600 Mg-200 Units Tab) 1 tab PO DAILY [facility] Cholecalciferol (Cholecalciferol (Vitamin D3) 25 Mcg Tab) 25 mcg PO DAILY [facility] Citalopram Hydrobromide (Citalopram 20 Mg Tab) 20 mg PO DAILY [facility] Docusate Sodium (Docusate Sodium 100 Mg Cap) 100 mg PO BID [facility] Last Admin: 12/09/20 20:09 Dose: 100 mg Documented by: Isosorbide Mononitrate (Isosorbide Mononitrate 30 Mg Tab.Er) 30 mg PO BID [facility] Last Admin: 12/09/20 20:10 Dose: 30 mg Documented by: Nitroglycerin (Nitroglycerin 0.4 Mg Tab.Sl) 0.4 mg SL ASDIRECTED PRN PRN Reason: Chest Pain Ranolazine (Ranolazine 500 Mg Tab.Er) 500 mg PO BID [facility] Last Admin: 12/09/20 20:10 Dose: 500 mg Documented by: Tramadol HCl (Tramadol 50 Mg Tab) 50 mg PO Q4H PRN PRN Reason: Pain (moderate 4-6) Zolpidem Tartrate (Zolpidem 5 Mg Tab) 5 mg PO BEDTIME PRN PRN Reason: Insomnia Last Admin: 12/09/20 20:21 Dose: 5 mg Documented by: Discontinued Medications Bupivacaine HCl/Epinephrine Bitart (Bupivacaine 0.5%/Epinephrine 1:200,000 50 Ml Mdv) Confirm Administered Dose 50 ml .ROUTE .[facility] ONE Stop: 12/09/20 09:41 Last Admin: 12/09/20 11:16 Dose: 15 ml Documented by: Cefazolin Sodium (Cefazolin 1 Gm Vial) Confirm Administered Dose 2 gm .ROUTE .[facility] ONE Stop: 12/09/20 09:27 Dexamethasone (Dexamethasone 4 Mg/Ml 5 Ml Mdv) Confirm Administered Dose 20 mg .ROUTE .[facility] ONE Stop: 12/09/20 13:03 Ephedrine Sulfate (Ephedrine 50 Mg/Ml Sdv) Confirm Administered Dose 50 mg .ROUTE .[facility] ONE Stop: 12/09/20 12:52 Ephedrine Sulfate (Ephedrine 50 Mg/Ml Sdv) Confirm Administered Dose 50 mg .ROUTE .[facility] ONE Stop: 12/09/20 12:53 Fentanyl (Fentanyl 100 Mcg/2 Ml Sdv) Confirm Administered Dose 100 mcg .ROUTE .[facility] ONE Stop: 12/09/20 08:38 Fentanyl (Fentanyl 100 Mcg/2 Ml Sdv) Confirm Administered Dose 100 mcg .ROUTE .[facility] ONE Stop: 12/09/20 10:09 Lactated Ringer's (Ringers, Lactated) 1,000 mls @ 125 mls/hr IV ASDIRECTED [facility] Stop: 12/09/20 23:00 Last Admin: 12/09/20 09:20 Dose: 125 mls/hr Documented by: Lidocaine HCl (Xylocaine-Mpf 1%) Confirm Administered Dose 4 mls @ as directed .ROUTE .[facility] ONE Stop: 12/09/20 08:38 Dextrose/Water (Dextrose 5% In Water) Confirm Administered Dose 100 mls @ as directed .ROUTE .[facility] ONE Stop: 12/09/20 09:45 Lactated Ringer's (Ringers, Lactated) Confirm Administered Dose 1,000 mls @ as directed .ROUTE .[facility] ONE Stop: 12/09/20 11:12 Lactated Ringer's (Ringers, Lactated) Confirm Administered Dose 1,000 mls @ as directed .ROUTE .[facility] ONE Stop: 12/09/20 13:20 Lidocaine/Epinephrine (Lidocaine 1% With Epinephrine 1:100,000 10 Ml Mdv) Confirm Administered Dose 50 ml .ROUTE .[facility] ONE Stop: 12/09/20 09:40 Last Admin: 12/09/20 11:16 Dose: 15 ml Documented by: Lidocaine/Sodium Bicarbonate (Lidocaine 1%/Sod Bicarbonate In Ns 8.4% 1 Ml Syringe) 0.25 ml IDERM ONETIME PRN PRN Reason: Prior to IV Start Stop: 12/09/20 18:00 Last Admin: 12/09/20 09:20 Dose: 0.25 ml Documented by: Methylene Blue (Methylene Blue 50 Mg/10 Ml Ampule) Confirm Administered Dose 50 mg .ROUTE .[facility] ONE Stop: 12/09/20 09:42 Last Admin: 12/09/20 11:06 Dose: 5 mg Documented by: Midazolam HCl (Midazolam 1 Mg/Ml 2 Ml Sdv) Confirm Administered Dose 2 mg .ROUTE .[facility] ONE Stop: 12/09/20 08:37 Midazolam HCl (Midazolam 1 Mg/Ml 2 Ml Sdv) Confirm Administered Dose 2 mg .ROUTE .[facility] ONE Stop: 12/09/20 11:35 Non-Formulary Medication (Denosumab [Prolia]) 60 mg SQ ASDIRECTED [facility] Non-Formulary Medication (Ubidecarenone) 100 mg PO DAILY [facility] Ondansetron HCl (Ondansetron 4 Mg/2 Ml Sdv) Confirm Administered Dose 4 mg .ROUTE .[facility] ONE Stop: 12/09/20 13:03 Propofol (Propofol 200 Mg/20 Ml Sdv) Confirm Administered Dose 200 mg .ROUTE .[facility] ONE Stop: 12/09/20 08:38 Propofol (Propofol 200 Mg/20 Ml Sdv) Confirm Administered Dose 200 mg .ROUTE .[facility] ONE Stop: 12/09/20 08:38 Sodium Chloride (Sodium Chloride 0.9% 10 Ml Syringe) 10 ml FLUSH ASDIRECTED PRN PRN Reason: Keep Vein Open Stop: 12/09/20 18:00
--- NOTE | 2020-12-10 07:45 | PCM48HPAN ---
Post Anesthesia Note - EVALUATION WITHIN 48HRS OF ANESTHETIC Vital Signs in Normal Range: Yes Patient Participated in Evaluation: Yes Respiratory Function Stable: Yes Airway Patent: Yes Cardiovascular Function Stable: Yes Hydration Status Stable: Yes Pain Control Satisfactory: Yes Nausea and Vomiting Control Satisfactory: Yes Mental Status Recovered: Yes Vital Signs: Last Vital Signs Temp 36.7 C 12/10/20 07:35 Pulse 55 L 12/10/20 07:35 Resp 16 12/10/20 07:35 BP 107/51 L 12/10/20 07:35 Pulse Ox 98 12/10/20 07:35
[2020-12-10] MEDS ORDERED: Citalopram 20 MG Tab PO SCH (09:00)
[2020-12-10] MEDS ORDERED: amLODIPine 5 MG Tab PO SCH (09:00)
[2020-12-10] MEDS ORDERED: Aspirin 81 MG Tab.Chew PO SCH (09:00)
[2020-12-10] MEDS ORDERED: Cholecalciferol (Vitamin D3) 25 MCG Tab PO SCH (09:00)
[2020-12-10] MEDS ORDERED: Calcium Carbonate/Vitamin D3 600 MG-200 Units Tab PO SCH (09:00)
[2020-12-10] MEDS ORDERED: Non-Formulary Medication 1 Each (Ubidecarenone 100 MG Capsule) PO SCH (09:00)
[2020-12-10] MEDS: Isosorbide Mononitrate 30 MG Tab.ER PO SCH (09:51)
[2020-12-10] MEDS: Docusate Sodium 100 MG Cap PO SCH (09:51)
[2020-12-10 09:52] VITALS: BP 115/56
== END 2020-12-10 11:15 | disposition home or self-care (01) | DRG 599 ==
LOC: JD.SDS 09:07 → JD.MS 13:45
PROVIDERS: ADMIT Surgery; ATTEND Surgery
DX: C50.911 Malignant neoplasm of unspecified site of right female breast (principal); Z17.0 Estrogen receptor positive status [ER+]; M06.9 Rheumatoid arthritis, unspecified; E78.2 Mixed hyperlipidemia; G47.00 Insomnia, unspecified; M81.0 Age-related osteoporosis without current pathological fracture; Z98.41 Cataract extraction status, right eye; Z98.42 Cataract extraction status, left eye; Z90.11 Acquired absence of right breast and nipple; Z91.09 Other allergy status, other than to drugs and biological substances; Z87.440 Personal history of urinary (tract) infections; Z87.891 Personal history of nicotine dependence; Z79.82 Long term (current) use of aspirin; Z79.899 Other long term (current) drug therapy; Z91.048 Other nonmedicinal substance allergy status; K57.90 Diverticulosis of intestine, part unspecified, without perforation or abscess without bleeding
CPT/HCPCS: 19303; 36415; 38500; 38792; 80048; 85025; 88305; 88307; 88341; 88342; A9541; J0690; J1100; J2250 ×2; J2405; J2704 ×2; J3010 ×2; J3490; J7120 ×3; 01610; 97110-GO; 97165-GO; 99100; A9270-GY

== ENCOUNTER 2022-11-15 14:11 | Emergency (ER) | payer MEDICARE, BC ==
[2022-11-15 14:39] VITALS: BP 132/69; PULSE 72
[2022-11-15] MEDS ORDERED: Sodium Chloride 0.9% 10 ML Syringe FLUSH PRN (14:51)
[2022-11-15] MEDS ORDERED: Ketorolac 30 MG/ML SDV IVPUSH ONE (14:53)
[2022-11-15] MEDS ORDERED: Iopamidol 612 MG/ML 100 ML Bottle IVPUSH ONE (16:11)
[2022-11-15] MEDS ORDERED: Sodium Chloride 0.9% 10 ML Syringe FLUSH ONE (16:11)
== END 2022-11-15 17:03 | disposition home or self-care (01) ==
LOC: JD.ED 14:11
DX: N30.01 Acute cystitis with hematuria (principal); E78.00 Pure hypercholesterolemia, unspecified; Z91.048 Other nonmedicinal substance allergy status; Z79.82 Long term (current) use of aspirin; Z79.899 Other long term (current) drug therapy
CPT/HCPCS: 36415; 74177; 80053; 81001; 85025; 86140; 87086; 96374; 99284; J1885; J3490; Q9967